=== PATIENT | female | born 1990 | race African-American/Black ===

== ENCOUNTER 2017-11-27 13:37 | Emergency (ER) | payer OTHER ==
[~2017-11-27] VITALS: Ht 165.1 cm; Wt 50.3 kg
[2017-11-27] MEDS ORDERED: PYRIDIUM200 MG PO (18:11)
[2017-11-27] MEDS ORDERED: CIPRO100 MG PO (18:11)
== END 2017-11-27 18:16 | disposition home or self-care (01) ==
LOC: ER 13:37
DX: N39.0 Urinary tract infection, site not specified (principal)